=== PATIENT | male | born 1950 | race Asian ===

== ENCOUNTER 2022-07-21 08:06 | Outpatient (CLI) | payer OTHER ==
--- NOTE | 2022-07-21 10:54 | MRI Report ---
PROCEDURE: MRI brain without contrast INDICATIONS: TREMOR TECHNIQUE: Noncontrast axial T1 spin echo, axial T2 fast spin echo, sagittal and axial FLAIR, coronal T2 fast sp in echo, axial gradient echo, axial diffusion and ADC through the brain. COMPARISON: None. FINDINGS: Image quality: Excellent. CSF Spaces: Basal cisterns are patent. No extra-axial fluid collections. Ventricles are normal in size and shape. Brain: No intracranial masses or hemorrhage. Ramirez/white matter interface is normal. Brainstem appe ars normal. Diffusion-weighted images demonstrate no acute infarct. Normal intravascular flow voids are present. Moderate atrophy and white matter chronic ischemic change. In the right middle frontal gyrus, there i s a small typical 5 mm cavernous hemangioma. Additional right frontal punctate subcortical focus of o ld blood products noted as well Skull and face: Calvarium has normal marrow signal. Orbits appear normal. Sinuses: 1.6 cm right maxillary sinus retention cyst IMPRESSION: 1. Moderate atrophy and white matter chronic ischemic change without acute infarct, acute hemorrhage or mass lesion. 2. Right frontal cavernous hemangioma. Additional focus of old blood products in the right frontal lo be may reflect old lacunar infarct additional cryptogenic cavernous hemangioma 3. Right maxillary sinus retention cyst Reviewed by: Jesus Moraes MD on 07/21/2022 9:52 AM JUAN M Approved by: Jesus Moraes MD on 07/21/2022 9:52 AM AKJO Station ID: [id number]
== END 2022-07-21 08:07 | disposition home or self-care (01) ==
LOC: DI 08:06
PROVIDERS: ATTEND Family Medicine
DX: D18.02 Hemangioma of intracranial structures (principal); J34.1 Cyst and mucocele of nose and nasal sinus; I67.82 Cerebral ischemia; G31.9 Degenerative disease of nervous system, unspecified; R25.1 Tremor, unspecified

== ENCOUNTER 2023-10-04 08:00 | Outpatient (CLI) | payer MEDICARE, OTHER ==
--- NOTE | 2023-10-04 10:20 | XRAY Report ---
PROCEDURE: Chest 2V INDICATIONS: COUGH TECHNIQUE: 2 views of the chest were acquired. COMPARISON: None. FINDINGS: Surgical changes and devices: None. Lungs and pleura: No pleural effusions or pneumothorax. Lungs are clear. Hyperexpansion of the lung s with flattening of the diaphragm suggestive of obstructive pulmonary disease. Biapical pleural-pare nchymal scarring. Mediastinum: Mediastinal contours appear normal. Heart size is at the upper limits of normal. Bones and chest wall: No suspicious bony lesions. Overlying soft tissues appear unremarkable. IMPRESSION: 1.No acute cardiopulmonary process. 2.Hyperexpansion of the lungs with flattening of the diaphragm suggestive of obstructive pulmonary di sease. Reviewed by: Karlo Richardson MD on 10/04/2023 10:19 AM PDT Approved by: Karlo Richardson MD on 10/04/2023 10:19 AM PDT Station ID: [id number]
== END 2023-10-04 23:59 | disposition home or self-care (01) ==
LOC: DI.S 08:00
PROVIDERS: ATTEND Emergency Medicine
DX: R05.9 Cough, unspecified (principal)

== ENCOUNTER 2023-10-21 15:09 | Outpatient (CLI) | payer MEDICARE ==
--- NOTE | 2023-10-21 16:36 | XRAY Report ---
PROCEDURE: Knee 3V RT INDICATIONS: SPRAIN OF RIGHT KNEE TECHNIQUE: 3 views of the knee(s) were acquired. COMPARISON: None. FINDINGS: Bones: No fractures or dislocations. No suspicious bony lesions. Soft tissues: No knee joint effusion. No suspicious soft tissue calcifications or masses. IMPRESSION: No acute bony abnormality. If there remains a high clinical concern for fracture, consider cross-sect ional imaging now. If pain persists, consider repeat x-ray in 10-14 days or cross-sectional imaging. Reviewed by: Pradip Spencer MD on 10/21/2023 4:35 PM PDT Approved by: Pradip Spencer MD on 10/21/2023 4:35 PM PDT Station ID: [id number]
== END 2023-10-21 15:10 | disposition home or self-care (01) ==
LOC: DI.S 15:09
PROVIDERS: ATTEND Physician Assistant Medical
DX: S83.8X1A Sprain of other specified parts of right knee, initial encounter (principal)